=== PATIENT | male | born 1955 | race Caucasian/White ===

== ENCOUNTER 2024-06-07 17:35 | Inpatient (IN) | payer MEDICARE ==
--- NOTE | 2024-06-07 18:22 | ED ---
General Adult HPI - General Chief complaint: Recheck/Abnormal Lab/Rx Stated complaint: Abd pain Time Seen by Provider: 06/07/24 17:58 Source: patient Mode of arrival: ambulatory Limitations: no limitations - History of Present Illness Initial comments: This patient is a 68-year-old man who arrives here to have further evaluation for jaundice. The patient states that he noticed changes to his urine between a week and 2 ago. He noticed that his urine was darkening. The patient states that he started having more frequent softer bowel movements he was describing his diarrhea. He states that the stool has also lightened. The patient made an appointment and saw his physician today and then was sent here to have further evaluation for jaundice. The patient denies history of liver disease. The patient states that he is not a frequent drinker, he maybe drinks alcohol 5 times a year. No history of known gallbladder disease though he states he did have an episode of back pain a few weeks ago and he had read on the Internet that it may have been gallbladder related. Onset/Timin -: week(s) Severity scale (1-10): 0 Improves with: none Worsens with: none Associated Symptoms: other Treatments Prior to Arrival: none - Related Data Home Medications Medication Instructions Recorded Confirmed No Known Home Medications 06/08/24 06/08/24 Allergies Allergy/AdvReac Type Severity Reaction Status Date / Time No Known Allergies Allergy Verified 06/08/24 07:47 Review of Systems ROS Statement: Those systems with pertinent positive or pertinent negative responses have been documented in the HPI. ROS Other: All systems not noted in ROS Statement are negative. Constitutional: Denies: fever, chills, weakness Respiratory: Denies: cough, dyspnea Cardiovascular: Denies: chest pain, palpitations, edema Gastrointestinal: Reports: nausea, diarrhea, other (Light stools). Denies: abdominal pain, vomiting, constipation, hematemesis, melena, hematochezia Genitourinary: Reports: other (Dark urine). Denies: dysuria, frequency Musculoskeletal: Denies: back pain Skin: Denies: rash Neurological: Denies: headache, weakness Past Medical History Past Medical History: No Reported History History of Any Multi-Drug Resistant Organisms: None Reported Past Surgical History: No Surgical Hx Reported Past Psychological History: No Psychological Hx Reported Smoking Status: Current every day smoker, Never smoker Past Alcohol Use History: Rare Past Drug Use History: None Reported General Exam Limitations: no limitations General appearance: alert, in no apparent distress Head exam: Present: atraumatic, normocephalic Eye exam: Present: normal appearance, scleral icterus. Absent: conjunctival injection ENT exam: Present: normal oropharynx Neck exam: Present: normal inspection Respiratory exam: Present: normal lung sounds bilaterally. Absent: respiratory distress, wheezes, rales, rhonchi, stridor, accessory muscle use Cardiovascular Exam: Present: regular rate, normal rhythm, normal heart sounds. Absent: systolic murmur, diastolic murmur, rubs, gallop GI/Abdominal exam: Present: soft, organomegaly. Absent: distended, tenderness, guarding, rebound, rigid, mass, pulsatile mass, hernia Extremities exam: Present: normal inspection, normal capillary refill. Absent: pedal edema, calf tenderness Back exam: Present: normal inspection. Absent: CVA tenderness (R), CVA tenderness (L) Neurological exam: Present: alert Skin exam: Present: warm, dry, intact, other (Jaundice). Absent: rash Course Vital Signs 06/07/24 06/07/24 06/07/24 17:37 22:00 23:13 Temperature 97.7 F 98.1 F Pulse Rate 82 74 Pulse Rate [ 61 Results Engineer ] Respiratory 18 18 16 Rate Blood Pressure 104/60 114/67 Blood Pressure 112/73 [Right Arm] O2 Sat by Pulse 98 97 100 Oximetry 06/08/24 06/08/24 02:14 05:44 Temperature Pulse Rate Pulse Rate [ 65 69 Results Engineer ] Respiratory 16 16 Rate Blood Pressure Blood Pressure 114/76 110/72 [Right Arm] O2 Sat by Pulse 100 99 Oximetry Medical Decision Making - Medical Decision Making The patient had ultrasound of the abdomen which I interpreted as not showing definite biliary obstruction. There is hepatomegaly Was pt. sent in by a medical professional or institution (, PA, OLIVING MACHINE OPERATOR, urgent care, hospital, or alf...) When possible be specific @ -[Yes the patient was sent to emergency department by his physician for further evaluation related to jaundice Did you speak to anyone other than the patient for history (EMS, parent, family, police, friend...)? What history was obtained from this source @ -[No] Did you review nursing and triage notes (agree or disagree)? Why? @ -[I reviewed and agree with nursing and triage notes] Were old charts reviewed (outside hosp., previous admission, EMS record, old EKG, old radiological studies, urgent care reports/EKG's, alf records)? Report findings @ -[No old charts were reviewed] Differential Diagnosis (chest pain, altered mental status, abdominal pain women, abdominal pain men, vaginal bleeding, weakness, fever, dyspnea, syncope, headache, dizziness, GI bleed, back pain, seizure, CVA, palpatations, mental health, musculoskeletal)? @ -[Differential Abdominal Pain Men: Appendicitis, cholecystitis, diverticulosis, ischemic bowel, pancreatitis, hepatitis, UTI, gastroenteritis, AAA, incarcerated hernia, bowel obstruction, constipation, inflammatory bowel, hepatitis, peptic ulcer disease, splenic infarction, perforated viscus, testicular torsion, this is not meant to be an all-inclusive list EKG interpreted by me (3pts min.). @ -[As above] X-rays interpreted by me (1pt min.). @ -[None done] CT interpreted by me (1pt min.). @ -[None done] U/S interpreted by me (1pt. min.). @ -[I interpreted as above What testing was considered but not performed or refused? (CT, X-rays, U/S, labs)? Why? @ -[None] What meds were considered but not given or refused? Why? @ -[None] Did you discuss the management of the patient with other professionals (professionals i.e. , PA, OLIVING MACHINE OPERATOR, lab, RT, psych nurse, social worker school, drier operator helper, teacher, chairman president and chief executive officer, disability case manager)? Give summary @ -[No] Was smoking cessation discussed for >3mins.? @ -[No] Was critical care preformed (if so, how long)? @ -[No] Were there social determinants of health that impacted care today? How? (Homelessness, low income, unemployed, alcoholism, drug addiction, transportation, low edu. Level, literacy, decrease access to med. care, senior living, rehab)? @ -[No] Was there de-escalation of care discussed even if they declined (Discuss DNR or withdrawal of care, Hospice)? DNR status @ -[No] What co-morbidities impacted this encounter? (DM, HTN, Smoking, COPD, CAD, Cancer, CVA, ARF, Chemo, Hep., AIDS, mental health diagnosis, sleep apnea, morbid obesity)? @ -[None] Was patient admitted / discharged? Hospital course, mention meds given and route, prescriptions, significant lab abnormalities, going to OR and other pertinent info. @ -[Patient is 68-year-old man presenting with jaundice and markedly elevated bilirubin level. The patient did have initial ultrasound here and MRI/MRI CP was recommended to further define the etiology. Discussed with the patient and will admit to expedite this workup. Undiagnosed new problem with uncertain prognosis? @ -[No] Drug Therapy requiring intensive monitoring for toxicity (Heparin, Nitro, Insulin, Cardizem)? @ -[No] Were any procedures done? @ -[No] Diagnosis/symptom? @ -[Acute jaundice Hepatomegaly Acute, or Chronic, or Acute on Chronic? @ -[Acute Uncomplicated (without systemic symptoms) or Complicated (systemic symptoms)? @ -[Uncomplicated Side effects of treatment? @ -[No] Exacerbation, Progression, or Severe Exacerbation? @ -[No] Poses a threat to life or bodily function? How? (Chest pain, [place], [place], pneumonia, PE, COPD, DKA, ARF, appy, cholecystitis, CVA, Diverticulitis, Homicidal, Suicidal, threat to staff... and all critical care pts) @ -[Requires further evaluation - Lab Data Result diagrams: 06/07/24 18:36 06/07/24 18:36 Lab Results 06/07/24 06/07/24 06/07/24 Range/Units 18:36 18:36 18:36 WBC 6.7 (3.8-10.6) k/uL RBC 5.19 (4.30-5.90) m/uL Hgb 14.9 (13.0-17.5) gm/dL Hct 46.1 (39.0-53.0) % MCV 88.9 (80.0-100.0) fL MCH 28.8 (25.0-35.0) pg MCHC 32.4 (31.0-37.0) g/dL RDW 16.0 H (11.5-15.5) % Plt Count 182 (150-450) k/uL MPV 12.3 Neutrophils % 59 % Lymphocytes % 32 % Monocytes % 5 % Eosinophils % 2 % Basophils % 1 % Neutrophils # 3.9 (1.3-7.7) k/uL Lymphocytes # 2.1 (1.0-4.8) k/uL Monocytes # 0.3 (0-1.0) k/uL Eosinophils # 0.1 (0-0.7) k/uL Basophils # 0.0 (0-0.2) k/uL Manual Slide Review Performed Anisocytosis Slight PT 13.2 H (10.0-12.5) sec INR 1.3 H (<1.2) APTT 29.1 (22.0-30.0) sec Sodium 134 L (137-145) mmol/L Potassium 3.9 (3.5-5.1) mmol/L Chloride 107 (98-107) mmol/L Carbon Dioxide 15 L (22-30) mmol/L Anion Gap 12 mmol/L BUN 19 (9-20) mg/dL Creatinine 1.46 H (0.66-1.25) mg/dL Est GFR (CKD-EPI)AfAm 57 (>60 ml/min/1.73 sqM) Est GFR (CKD-EPI)NonAf 49 (>60 ml/min/1.73 sqM) Glucose 113 H (74-99) mg/dL Calcium 10.0 (8.4-10.2) mg/dL Total Bilirubin 24.0 H* (0.2-1.3) mg/dL AST 150 H (17-59) U/L ALT 282 H (4-49) U/L Alkaline Phosphatase 360 H (38-126) U/L Ammonia (<30) umol/L Total Protein 7.3 (6.3-8.2) g/dL Albumin 4.1 (3.5-5.0) g/dL Urine Color Urine Appearance (Clear) Urine pH (5.0-8.0) Ur Specific [place] (1.001-1.035) Urine Protein (Negative) Urine Glucose (UA) (Negative) Urine Ketones (Negative) Urine Blood (Negative) Urine Nitrite (Negative) Urine Bilirubin (Negative) Urine Urobilinogen (<2.0) mg/dL Ur Leukocyte Esterase (Negative) Urine RBC (0-5) /hpf Urine WBC (0-5) /hpf Ur Squamous Epith Cells (0-4) /hpf Urine Mucus (None) /hpf Hepatitis A IgM Ab (Nonreactive) Hep Bs Antigen (Nonreactive) Hep B Core IgM Ab (Nonreactive) Hep C IgG Ab (Nonreactive) 06/07/24 06/07/24 06/07/24 Range/Units 18:36 18:40 20:28 WBC (3.8-10.6) k/uL RBC (4.30-5.90) m/uL Hgb (13.0-17.5) gm/dL Hct (39.0-53.0) % MCV (80.0-100.0) fL MCH (25.0-35.0) pg MCHC (31.0-37.0) g/dL RDW (11.5-15.5) % Plt Count (150-450) k/uL MPV Neutrophils % % Lymphocytes % % Monocytes % % Eosinophils % % Basophils % % Neutrophils # (1.3-7.7) k/uL Lymphocytes # (1.0-4.8) k/uL Monocytes # (0-1.0) k/uL Eosinophils # (0-0.7) k/uL Basophils # (0-0.2) k/uL Manual Slide Review Anisocytosis PT (10.0-12.5) sec INR (<1.2) APTT (22.0-30.0) sec Sodium (137-145) mmol/L Potassium (3.5-5.1) mmol/L Chloride (98-107) mmol/L Carbon Dioxide (22-30) mmol/L Anion Gap mmol/L BUN (9-20) mg/dL Creatinine (0.66-1.25) mg/dL Est GFR (CKD-EPI)AfAm (>60 ml/min/1.73 sqM) Est GFR (CKD-EPI)NonAf (>60 ml/min/1.73 sqM) Glucose (74-99) mg/dL Calcium (8.4-10.2) mg/dL Total Bilirubin (0.2-1.3) mg/dL AST (17-59) U/L ALT (4-49) U/L Alkaline Phosphatase (38-126) U/L Ammonia <9 (<30) umol/L Total Protein (6.3-8.2) g/dL Albumin (3.5-5.0) g/dL Urine Color Dark Brown Urine Appearance Cloudy (Clear) Urine pH 5.5 (5.0-8.0) Ur Specific [place] 1.025 (1.001-1.035) Urine Protein Trace H (Negative) Urine Glucose (UA) Negative (Negative) Urine Ketones Negative (Negative) Urine Blood Small H (Negative) Urine Nitrite Negative (Negative) Urine Bilirubin 4+ H (Negative) Urine Urobilinogen <2.0 (<2.0) mg/dL Ur Leukocyte Esterase Negative (Negative) Urine RBC 1 (0-5) /hpf Urine WBC 9 H (0-5) /hpf Ur Squamous Epith Cells 1 (0-4) /hpf Urine Mucus Few H (None) /hpf Hepatitis A IgM Ab Nonreactive (Nonreactive) Hep Bs Antigen Nonreactive (Nonreactive) Hep B Core IgM Ab Nonreactive (Nonreactive) Hep C IgG Ab Nonreactive (Nonreactive) Disposition Clinical Impression: Jaundice Disposition: ADMITTED IP TO THIS HOSP Condition: Fair Is patient prescribed a controlled substance at d/c from ED?: No
[2024-06-07 19:06] LABS: Anisocytosis Slight; Basophils % (A) 1 %; Eosinophils # (A) 0.1 k/uL (0-0.7); Eosinophils % (A) 2 %; HCT 46.1 % (39.0-53.0); HGB 14.9 gm/dL (13.0-17.5); Lymphocytes # (A) 2.1 k/uL (1.0-4.8); Lymphocytes % (A) 32 %; MCH 28.8 pg (25.0-35.0); MCHC 32.4 g/dL (31.0-37.0); MCV 88.9 fL (80.0-100.0); Mean Platelet Volume 12.3; Monocytes # (A) 0.3 k/uL (0-1.0); Monocytes % (A) 5 %; Neutrophils # (A) 3.9 k/uL (1.3-7.7); Neutrophils % (A) 59 %; Platelet Count 182 k/uL (150-450); RBC 5.19 m/uL (4.30-5.90); WBC 6.7 k/uL (3.8-10.6)
[2024-06-07 19:19] LABS: ALT 282 U/L (4-49); AST 150 U/L (17-59); African American GFR (CKD) 57 (>60 ml/min/1.73 sqM); Albumin 4.1 g/dL (3.5-5.0); Alkaline Phosphatase 360 U/L (38-126); Anion Gap 12 mmol/L; Blood Urea Nitrogen 19 mg/dL (9-20); Carbon Dioxide 15 mmol/L (22-30); Chloride 107 mmol/L (98-107); Glucose 113 mg/dL (74-99); Non-African American GFR(CKD) 49 (>60 ml/min/1.73 sqM); Potassium 3.9 mmol/L (3.5-5.1); Sodium 134 mmol/L (137-145)
[2024-06-07 19:31] LABS: Appearance,Urine Cloudy (Clear); Bilirubin,Urine 4+ (Negative); Blood,Urine Small (Negative); Color,Urine Dark Brown; Glucose,Urine (UA) Negative (Negative); Ketones,Urine Negative (Negative); Leukocyte Esterase,Urine Negative (Negative); Mucus,Urine Few /hpf; Nitrite,Urine Negative (Negative); PH, Urine 5.5 (5.0-8.0); Protein,Urine Trace (Negative); RBC,Urine 1 /hpf (0-5); Specific Gravity,Urine 1.025 (1.001-1.035); Squamous Epithelial Cell,Urine 1 /hpf (0-4); Urobilinogen,Urine <2.0 mg/dL (<2.0); WBC,Urine 9 /hpf (0-5)
--- NOTE | 2024-06-07 19:31 | US ---
EXAMINATION TYPE: US abdomen limited DATE OF EXAM: 06/07/2024 COMPARISON: NONE CLINICAL INDICATION: Male, 68 years old with history of attention RUQ/Jaundice; Patient states jaundi ce, diarrhea, and weight loss for about 2 weeks TECHNIQUE: Multiple sonographic images of the right upper quadrant are obtained. FINDINGS: EXAM MEASUREMENTS: Liver Length: 18.4 cm Gallbladder Wall: 0.3 cm CBD: 1.8 cm Right Kidney: 10.7 x 4.4 x 4.3 cm AUDIO VISUAL PROJECT MANAGER NOTES:Limited due to overlying bowel gas Pancreas: Unable to visualize due to overlying bowel gas Liver: Hepatomegaly. Dilated ducts/ vessels. Heterogeneous echotexture. There is a 2.2 x 1.7 x 1.5cm hyperechoic area seen in the posterior right lobe of the liver. Gallbladder: Echogenic foci with posterior shadowing seen. There also appears to be layering echogen ic layering material. Evidence for sonographic House's sign: No CBD: Dilated Right Kidney: There is a 2.2 x 2.3 x 2.6cm cystic area seen within the lateral/ inferior pole. IMPRESSION: 1. Dilated ducts are seen throughout the liver. Etiology uncertain. Further evaluation with MRCP MRI recommended with IV contrast. 2. Hyperechoic lesion in the liver is indeterminate but statistically likely to represent hemangioma in the absence of history of malignancy. 3. Cholelithiasis. [facility], , 06/07/2024 7:29 PM
[2024-06-07 19:34] LABS: Total Protein 7.3 g/dL (6.3-8.2)
[2024-06-07 19:48] LABS: INR 1.3 (<1.2); Partial Thromboplastin Time 29.1 sec (22.0-30.0); Prothrombin Time 13.2 sec (10.0-12.5)
[2024-06-07] MEDS ORDERED: MAG HYDROX/AL HYDROX/SIMETH 30 ML CUP PO PRN (21:41)
[2024-06-07] MEDS ORDERED: NALOXONE 0.4 MG/ML 1 ML VIAL IV PRN (21:41)
[2024-06-07] MEDS: SODIUM CHLORIDE 0.9% 1,000 ML IV SCH (21:55)
[2024-06-08 02:46] LABS: Hepatitis A Antibody IgM Nonreactive (Nonreactive); Hepatitis B Core IgM Nonreactive (Nonreactive); Hepatitis B Surface Antigen Nonreactive (Nonreactive); Hepatitis C IgG Antibody Nonreactive (Nonreactive)
[2024-06-08] MEDS: FAMOTIDINE 20 MG TAB PO SCH (08:44)
[2024-06-08 08:45] LABS: ALT 248 U/L (4-49); AST 129 U/L (17-59); Albumin 3.6 g/dL (3.5-5.0); Albumin/Globulin Ratio 1.2; Alkaline Phosphatase 322 U/L (38-126); Globulin 2.9 g/dL; Total Protein 6.5 g/dL (6.3-8.2)
[2024-06-08 08:49] LABS: Total Bilirubin 21.8 mg/dL (0.2-1.3)
[2024-06-08 08:58] LABS: INR 1.4 (<1.2); Prothrombin Time 14.1 sec (10.0-12.5)
[2024-06-08 10:55] LABS: African American GFR (CKD) 64 (>60 ml/min/1.73 sqM); Anion Gap 11 mmol/L; Blood Urea Nitrogen 19 mg/dL (9-20); Calcium 9.7 mg/dL (8.4-10.2); Carbon Dioxide 16 mmol/L (22-30); Chloride 111 mmol/L (98-107); Glucose 116 mg/dL (74-99); Non-African American GFR(CKD) 55 (>60 ml/min/1.73 sqM); Potassium 3.8 mmol/L (3.5-5.1); Sodium 138 mmol/L (137-145)
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
[2024-06-08] MEDS: PHYTONADIONE 5 MG in SODIUM CHLORIDE 0.9% 50 ML IVPB SCH (11:57)
--- NOTE | 2024-06-08 13:11 | XR ---
EXAMINATION TYPE: XR chest 1V portable DATE OF EXAM: 06/08/2024 12:58 PM CLINICAL INDICATION: Male, 68 years old with history of CHF; COMPARISON: Chest radiographs from 06/08/2024 TECHNIQUE: XR chest 1V portable Frontal view of the chest. FINDINGS: Lungs/Pleura: There is no evidence of pleural effusion, focal consolidation, or pneumothorax. Pulmonary vascularity: Unremarkable. Heart/mediastinum: Cardiomediastinal silhouette is unremarkable. Musculoskeletal: No acute osseous pathology. IMPRESSION: No acute cardiopulmonary disease/process. [facility], , 06/08/2024 1:09 PM
[2024-06-08] MEDS: IOPAMIDOL CONTRAST (ORAL USE) VIAL PO PRN (13:48)
[2024-06-08] MEDS: PANTOPRAZOLE 40 MG/10 ML VIAL IVP SCH (14:15)
--- NOTE | 2024-06-08 16:04 | CT ---
EXAMINATION TYPE: CT abdomen pelvis wo con DATE OF EXAM: 06/08/2024 COMPARISON: None HISTORY: 68-year-old male abdominal pain, jaundice/dark urine CT DLP: 1007 mGycm. Automated exposure control for dose reduction was used. TECHNIQUE: Contiguous axial scanning of the abdomen and pelvis without IV contrast. Coronal and sagit kishan reconstructions performed. FINDINGS: Heart normal size without pericardial effusion. Strandy atelectasis posterior lung bases without pleu ral effusion. No pleural effusion. 7 mm posteromedial right basilar pulmonary nodule. 8 mm lateral left basilar pulmonary nodule. Small hiatal hernia. There is severe hepatic biliary ductal dilatation. The main bile duct is dilated up to 2.3 cm. There seems to be cut off of the bile duct at the level of the pancreatic head, coronal image 48. Possible underlying pancreatic head mass, coronal image 45 and axial image 30 possibly measuring up to 2.4 cm in size. Punctate pancreatic calcifications suggesting background chronic pancreatitis. Gallbladder hydropic measuring 5.2 cm wide with a noncalcified gallstone measuring 3.2 cm. Adrenal glands, spleen within normal limits. Bilateral renal cortical cysts measuring up to 4.1 cm on the left and 2.2 cm on the right. Tiny hyper dense cortical lesion 8 mm posterior upper pole left kidney probably a tiny hemorrhagic or proteinace ous cyst. No dilated small bowel, free fluid, or free air. No mesenteric or retroperitoneal lymphadenopathy. Oral contrast progressed to the cecum. Possible mural thickening at the lower ascending colon, refer to coronal image 56 and axial image 50. This appears may be due to nondistention. Direct visualizatio n to exclude underlying neoplasm. There is a small Kaur hernia involving the distal third transver se colon at the left upper quadrant, axial image 30. No obstructive changes. Scattered mild stool. Pr oximal to mid sigmoid diverticulosis. No pericolonic inflammatory change. Mild circumference of bladder wall thickening may be due to incomplete distention. Prostate gland emil sures 5.0 cm wide. No abnormal fluid collection in the pelvis or pelvic lymphadenopathy. A couple pel kale phlebolith are noted. Bones: Facet arthropathy mid to lower lumbar spine. Moderate degenerative disc disease mid to lower l umbar spine. [id number] degenerative change of both hips. IMPRESSION: 1. Severe intrahepatic and extrahepatic biliary ductal dilatation. The bile duct is dilated to 2.3 c m. There seems to be cut off at the level of the pancreatic head. Underlying pancreatic head mass is not excluded and may measure up to 2.4 cm. Correlate with tumor markers and pancreas MRI and/or EUS. Background chronic pancreatitis. 2. A couple pulmonary nodules at the lung bases are nonspecific measuring 7 mm and 8 mm. These warra nt follow-up to exclude metastatic disease. 3. Secondary gallbladder hydrops but without any surrounding inflammation. Noncalcified gallstone me asuring 3.2 cm. 4. Possible mural thickening at the lower ascending colon. This may be due to nondistention. Mucosal lesion/neoplasm not excluded at this time. Direct visualization recommended if routine screening col onoscopy has not been performed. 5. Incidental small left upper quadrant Kaur hernia involving the distal third transverse colon. No obstructive changes. 6. Sigmoid diverticulosis. Prostatomegaly at 5.0 cm wide. [facility], , 06/08/2024 4:01 PM
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
[2024-06-09 08:50] LABS: Basophils # (A) 0.03 X 10*3/uL (0.00-0.10); Basophils % (A) 0.6 %; Eosinophils # (A) 0.14 X 10*3/uL (0.04-0.35); Eosinophils % (A) 2.6 %; HCT 35.7 % (39.6-50.0); HGB 12.5 g/dL (13.0-17.0); Lymphocytes # (A) 1.24 X 10*3/uL (0.90-5.00); Lymphocytes % (A) 22.8 %; MCH 28.5 pg (27.0-32.0); MCV 81.3 FL (80.0-97.0); Monocytes % (A) 9.2 %; NRBC Per 100 WBC 0 X 10*3/uL (0.00-0.01); Neutrophils % (A) 64.1 %; Platelet Count 143 X 10*3/uL (140-440); RBC 4.39 X 10*6/uL (4.40-5.60); RDW 18.3 % (11.5-14.5); WBC 5.45 X 10*3/uL (4.50-10.00)
[2024-06-09 09:47] LABS: ALT 201 U/L (10-49); AST 96 U/L (14-35); Albumin 3.2 g/dL (3.8-4.9); Albumin/Globulin Ratio 2.13 Ratio (1.60-3.17); Alkaline Phosphatase 309 U/L (41-126); BUN/Creat Ratio 11.79 Ratio (12.00-20.00); Blood Urea Nitrogen 16.5 mg/dL (9.0-27.0); Calcium 8.7 mg/dL (8.7-10.3); Carbon Dioxide 18.9 mmol/L (21.6-31.8); Chloride 107 mmol/L (96-109); Globulin 1.5 g/dL (1.6-3.3); Glucose 103 mg/dL (70-110); Potassium 3.8 mmol/L (3.5-5.5); Sodium 136 mmol/L (135-145); Total Bilirubin 21.6 mg/dL (0.3-1.2); Total Protein 4.7 g/dL (6.2-8.2)
--- NOTE | 2024-06-09 11:16 | P.PN ---
Subjective Progress Note Date: 06/09/24 Principal diagnosis: Obstructive jaundice This a pleasant 68-year-old male with no reported past medical history and no home meds presented to the emergency department as recommended by his PCP for workup for jaundice. He states he started noticing dark urine about 2 weeks ago and then about a week ago noticing his skin turning yellow. He also reports having diarrhea for last 1 to 2 weeks which she reports as white and loose. He denies any abdominal pain nausea or vomiting. Does state he has had about 10 pound weight loss in last 2 weeks duration. Denies any history of previous heavy alcohol use or abuse, no alcohol use currently, non-smoker, no previous history of liver disease denies any new medications and no family history of liver or pancreatic cancer that he is aware of. Patient was severely jaundice on admission with a total bilirubin of 24 with elevated LFTs. Gastroenterology was consulted for jaundice. Patient had abdominal ultrasound with multiple abnormal findings. He currently has no complaints at this time. Denies any nausea or vomiting or abdominal pain. He does report about 2 months ago having a pain under his right rib cage that radiated to his back however did not last long. No further pain since then. 06/09/2024 Patient is seen and examined today as a follow-up. No acute changes through the night. He did undergo CT of the abdomen pelvis without contrast with findings of severe intrahepatic and extrahepatic biliary ductal dilation. Bile duct dilated to 0.3 cm with a cutoff at the level of the pancreatic head. Underlying pancreatic head mass is not excluded and may measure up to 2.4 cm. Correlate with tumor markers and pancreas MRI and/or EUS. Background chronic pancreatitis. Couple pulmonary nodules at the lung bases are nonspecific measuring 7 mm and 8 mm these warrant follow-up to exclude metastatic disease. Secondary gallbladder hydrops but without any surrounding inflammation. Noncalcified gallstone measuring 3.2 cm. Possible mural thickening at the lower ascending colon. This may be due to nondistention. Mucosal lesion/neoplasm not excluded at this time. Direct visualization recommended if routine screening colonoscopy has not been performed. Incidental small left upper quadrant Kaur hernia involving the distal third transverse colon. No obstructive changes. Sigmoid diverticulosis prostamegaly at 5.0 cm wide. CA 19-9 elevated at 144. He denies any abdominal pain at this time, no nausea or vomiting. Repeat total bilirubin 21.6 AST 96 ALT 201 alk phos 309 Objective - Vital Signs Vital signs: Vital Signs Temp 98.1 F 06/09/24 03:09 Pulse 65 06/09/24 03:09 Resp 16 06/09/24 03:09 BP 98/61 06/09/24 03:09 Pulse Ox 99 06/09/24 03:09 FiO2 Intake & Output 06/08/24 06/09/24 06/09/24 18:59 06:59 18:59 Intake Total 236 Balance 236 Intake: Oral 236 Other: Voiding Method Toilet Toilet # Voids 2 - Exam General appearance: The patient is alert, oriented, appears in no acute distress. HET: Head is normocephalic and atraumatic. Conjunctiva pink. Sclera deeply icteric. Neck: Supple without lymphadenopathy. Abdomen: Soft, nontender, nondistended with bowel sounds. No guarding or rigidity. Extremities: Normal skin color and turgor. No pedal edema Skin: No rashes, jaundice. Neurological: No focal deficits. Alert and oriented. - Labs CBC & Chem 7: 06/09/24 03:01 06/09/24 03:01 Labs: Abnormal Lab Results - Last 24 Hours (Table) 06/08/24 06/08/24 06/08/24 Range/Units 07:52 07:52 07:52 PT 14.1 H (10.0-12.5) sec INR 1.4 H (<1.2) Chloride 111 H (98-107) mmol/L Carbon Dioxide 16 L (22-30) mmol/L Creatinine 1.34 H (0.66-1.25) mg/dL Glucose 116 H (74-99) mg/dL Total Bilirubin 21.8 H* (0.2-1.3) mg/dL Conjugated Bilirubin 15.0 H (0.0-0.3) mg/dL Unconjugated Bilirubin 2.0 H (0.0-1.1) mg/dL AST 129 H (17-59) U/L ALT 248 H (4-49) U/L Alkaline Phosphatase 322 H (38-126) U/L CA 19-9 Antigen 144.0 H (0.0-34.9) U/mL Assessment and Plan (1) Hyperbilirubinemia Narrative/Plan: 68-year-old male with no significant past medical history presents with jaundice with onset 2 weeks ago associated with pale diarrhea and a 10 pound weight loss in the last 2 weeks duration. No history of alcoholism, liver disease and no abdominal pain. Elevated bilirubin and LFTs, unconjugated bilirubin 15.0 conjugated 2.0. Hepatomegaly with dilated ducts and dilated CBD as well as heterogeneous liver with hyperechoic area. Unclear etiology however has cholestatic pattern need to consider obstructive jaundice. CT abdomen pelvis performed with findings of pancreatic head mass likely causing obstructive jaundice malignancy With elevated CA 19 9 suspicious for possible malignancy. Recommend transfer to tertiary center for ERCP with EUS and biopsy. This was discussed with the patient who was somewhat hesitant with the transfer however states would like to stay as close as possible. Recommendations for transfer discussed with primary medical team to initiate transfer. Current Visit: Yes Status: Acute Code(s): E80.6 - OTHER DISORDERS OF BILIRUBIN METABOLISM SNOMED Code(s): 33768219 (2) Elevated LFTs Narrative/Plan: AFP tumor marker normal Current Visit: Yes Status: Acute Code(s): R79.89 - OTHER SPECIFIED ABNORMAL FINDINGS OF BLOOD CHEMISTRY SNOMED Code(s): 770877983 (3) Abnormal US (ultrasound) of abdomen Current Visit: Yes Status: Acute Code(s): R93.5 - ABN FINDINGS ON DX IMAGING OF ABD REGIONS, INC RETROPERITON SNOMED Code(s): 09306640051725217 (4) Cholelithiases Current Visit: Yes Status: Acute Code(s): K80.20 - CALCULUS OF GALLBLADDER W/O CHOLECYSTITIS W/O OBSTRUCTION SNOMED Code(s): 035275566 (5) Common bile duct dilation Current Visit: Yes Status: Acute Code(s): K83.8 - OTHER SPECIFIED DISEASES OF BILIARY TRACT SNOMED Code(s): 485366844 (6) Hepatomegaly Current Visit: Yes Status: Acute Code(s): R16.0 - HEPATOMEGALY, NOT ELSEWHERE CLASSIFIED SNOMED Code(s): 69200026 (7) Jaundice Current Visit: Yes Status: Acute Code(s): R17 - UNSPECIFIED JAUNDICE SNOMED Code(s): 44261549 (8) Diarrhea Current Visit: Yes Status: Acute Code(s): R19.7 - DIARRHEA, UNSPECIFIED SNOMED Code(s): 18568163 Plan: 1. Continue symptomatic and supportive care 2. Will cancel MRI 3. Patient may have regular diet 4. Avoid hepatotoxic medications 5. AFP, CA 19-9 tumor markers ordered 6. Recommend transfer to tertiary center for ERCP with EUS for biopsy and further recommendations on treatment. This was discussed with the patient. Also discussed with primary medical team to initiate transfer. Thank you for this consultation, we will continue to follow. Dr. Lonnie Santos I agree with the dictator's note, documented as a scribe by Genevieve Lane.
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
[2024-06-10 10:43] LABS: ALT 196 U/L (4-49); AST 112 U/L (17-59); African American GFR (CKD) 82 (>60 ml/min/1.73 sqM); Albumin 3.4 g/dL (3.5-5.0); Albumin/Globulin Ratio 1.1; Anion Gap 10 mmol/L; Blood Urea Nitrogen 17 mg/dL (9-20); Calcium 9.4 mg/dL (8.4-10.2); Carbon Dioxide 18 mmol/L (22-30); Chloride 110 mmol/L (98-107); Glucose 113 mg/dL (74-99); Non-African American GFR(CKD) 71 (>60 ml/min/1.73 sqM); Sodium 138 mmol/L (137-145)
[2024-06-10 11:00] LABS: Alkaline Phosphatase 286 U/L (38-126); Total Protein 6.4 g/dL (6.3-8.2)
[2024-06-10 11:01] LABS: Total Bilirubin 28.5 mg/dL (0.2-1.3)
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
--- NOTE | 2024-06-10 13:57 | P.PN ---
Subjective Progress Note Date: 06/10/24 Principal diagnosis: Obstructive jaundice This a pleasant 68-year-old male with no reported past medical history and no home meds presented to the emergency department as recommended by his PCP for workup for jaundice. He states he started noticing dark urine about 2 weeks ago and then about a week ago noticing his skin turning yellow. He also reports having diarrhea for last 1 to 2 weeks which she reports as white and loose. He denies any abdominal pain nausea or vomiting. Does state he has had about 10 pound weight loss in last 2 weeks duration. Denies any history of previous heavy alcohol use or abuse, no alcohol use currently, non-smoker, no previous history of liver disease denies any new medications and no family history of liver or pancreatic cancer that he is aware of. Patient was severely jaundice on admission with a total bilirubin of 24 with elevated LFTs. Gastroenterology was consulted for jaundice. Patient had abdominal ultrasound with multiple abnormal findings. He currently has no complaints at this time. Denies any nausea or vomiting or abdominal pain. He does report about 2 months ago having a pain under his right rib cage that radiated to his back however did not last long. No further pain since then. 06/09/2024 Patient is seen and examined today as a follow-up. No acute changes through the night. He did undergo CT of the abdomen pelvis without contrast with findings of severe intrahepatic and extrahepatic biliary ductal dilation. Bile duct dilated to 0.3 cm with a cutoff at the level of the pancreatic head. Underlying pancreatic head mass is not excluded and may measure up to 2.4 cm. Correlate with tumor markers and pancreas MRI and/or EUS. Background chronic pancreatitis. Couple pulmonary nodules at the lung bases are nonspecific measuring 7 mm and 8 mm these warrant follow-up to exclude metastatic disease. Secondary gallbladder hydrops but without any surrounding inflammation. Noncalcified gallstone measuring 3.2 cm. Possible mural thickening at the lower ascending colon. This may be due to nondistention. Mucosal lesion/neoplasm not excluded at this time. Direct visualization recommended if routine screening colonoscopy has not been performed. Incidental small left upper quadrant Kaur hernia involving the distal third transverse colon. No obstructive changes. Sigmoid diverticulosis prostamegaly at 5.0 cm wide. CA 19-9 elevated at 144. He denies any abdominal pain at this time, no nausea or vomiting. Repeat total bilirubin 21.6 AST 96 ALT 201 alk phos 309 06/10/2024 Patient seen and examined today as a follow-up. He is without any complaints of abdominal pain, nausea or vomiting. He states that he may get a little discomfort after eating but it is not bad. He remains extremely jaundice. He has been accepted to [facility] and is awaiting a bed for higher level of care for EUS. Objective - Vital Signs Vital signs: Vital Signs Temp 98.4 F 06/10/24 07:00 Pulse 66 06/10/24 07:00 Resp 16 06/10/24 07:00 BP 114/72 06/10/24 07:00 Pulse Ox 100 06/10/24 07:00 FiO2 Intake & Output 06/09/24 06/10/24 06/10/24 18:59 06:59 18:59 Intake Total 236 1220 Balance 236 1220 Intake: Oral 236 1220 Other: Voiding Method Toilet Toilet Toilet # Voids 1 2 - Exam General appearance: The patient is alert, oriented, appears in no acute distress. HET: Head is normocephalic and atraumatic. Conjunctiva pink. Sclera deeply icteric. Neck: Supple without lymphadenopathy. Abdomen: Soft, nontender, nondistended with bowel sounds. No guarding or rigidity. Extremities: Normal skin color and turgor. No pedal edema Skin: No rashes, jaundice. Neurological: No focal deficits. Alert and oriented. - Labs CBC & Chem 7: 06/09/24 03:01 06/10/24 09:18 Labs: Abnormal Lab Results - Last 24 Hours (Table) 06/09/24 06/09/24 Range/Units 03:01 03:01 RBC 4.39 L (4.40-5.60) X 10*6/uL Hgb 12.5 L (13.0-17.0) g/dL Hct 35.7 L (39.6-50.0) % RDW 18.3 H (11.5-14.5) % Carbon Dioxide 18.9 L (21.6-31.8) mmol/L Est GFR (CKD-EPI) 55 L (>=60) BUN/Creatinine Ratio 11.79 L (12.00-20.00) Ratio Total Bilirubin 21.6 A* (0.3-1.2) mg/dL AST 96 H (14-35) U/L ALT 201 H (10-49) U/L Alkaline Phosphatase 309 H (41-126) U/L Total Protein 4.7 L (6.2-8.2) g/dL Albumin 3.2 L (3.8-4.9) g/dL Globulin 1.5 L (1.6-3.3) g/dL Assessment and Plan (1) Hyperbilirubinemia Narrative/Plan: 68-year-old male with no significant past medical history presents with jaundice with onset 2 weeks ago associated with pale diarrhea and a 10 pound weight loss in the last 2 weeks duration. No history of alcoholism, liver disease and no ab dominal pain. Elevated bilirubin and LFTs, unconjugated bilirubin 15.0 conjugated 2.0. Hepatomegaly with dilated ducts and dilated CBD as well as heterogeneous liver with hyperechoic area. Unclear etiology however has cholestatic pattern need to consider obstructive jaundice. CT abdomen pelvis performed with findings of pancreatic head mass likely causing obstructive jaundice malignancy With elevated CA 19 9 suspicious for possible malignancy. Recommend transfer to tertiary center for ERCP with EUS and biopsy. This was discussed with the patient who was somewhat hesitant with the transfer however states would like to stay as close as possible. Recommendations for transfer discussed with primary medical team to initiate transfer. Current Visit: Yes Status: Acute Code(s): E80.6 - OTHER DISORDERS OF BILIRU BIN METABOLISM SNOMED Code(s): 10955315 (2) Elevated LFTs Narrative/Plan: AFP tumor marker normal Current Visit: Yes Status: Acute Code(s): R79.89 - OTHER SPECIFIED ABNORMAL FINDINGS OF BLOOD CHEMISTRY SNOMED Code(s): 268590149 (3) Abnormal US (ultrasound) of abdomen Current Visit: Yes Status: Acute Code(s): R93.5 - ABN FINDINGS ON DX IMAGING OF ABD REGIONS, INC RETROPERITON SNOMED Code(s): 77723395096730569 (4) Cholelithiases Current Visit: Yes Status: Acute Code(s): K80.20 - CALCULUS OF GALLBLADDER W/O CHOLECYSTITIS W/O OBSTRUCTION SNOMED Code(s): 798393969 (5) Common bile duct dilation Current Visit: Yes Status: Acute Code(s): K83.8 - OTHER SPECIFIED DISEASES OF BILIARY TRACT SNOMED Code(s): 072534408 (6) Hepatomegaly Current Visit: Yes Status: Acute Code(s): R16.0 - HEPATOMEGALY, NOT ELSEWHERE CLASSIFIED SNOMED Code(s): 32922890 (7) Jaundice Current Visit: Yes Status: Acute Code(s): R17 - UNSPECIFIED JAUNDICE SNOMED Code(s): 59353872 (8) Diarrhea Current Visit: Yes Status: Acute Code(s): R19.7 - DIARRHEA, UNSPECIFIED SNOMED Code(s): 72524225 (9) Mass of head of pancreas Current Visit: Yes Status: Acute Code(s): K86.89 - OTHER SPECIFIED DISEASES OF PANCREAS SNOMED Code(s): 816027797 Plan: 1. Continue symptomatic and supportive care 2. Protonix 40 mg for GI prophylaxis 3. Patient may have regular diet 4. Avoid hepatotoxic medications 5. AFP, CA 19-9 tumor markers ordered and reviewed 6. Recommend transfer to tertiary center for ERCP with EUS for biopsy and further recommendations on treatment. This was discussed with the patient. Awaiting bed for transfer to [facility] for higher level of care. Thank you for this consultation, we will continue to follow. Dr. Lonnie Santos I agree with the dictator's note, documented as a scribe by Genevieve Lane.
[2024-06-11 02:38] VITALS: RESP 16
[2024-06-11 07:42] VITALS: BP 101/59; PULSE 78; TEMP 99.3
--- NOTE | 2024-06-11 07:44 | P.PN ---
Subjective Progress Note Date: 06/11/24 Principal diagnosis: Obstructive jaundice This a pleasant 68-year-old male with no reported past medical history and no home meds presented to the emergency department as recommended by his PCP for workup for jaundice. He states he started noticing dark urine about 2 weeks ago and then about a week ago noticing his skin turning yellow. He also reports having diarrhea for last 1 to 2 weeks which she reports as white and loose. He denies any abdominal pain nausea or vomiting. Does state he has had about 10 pound weight loss in last 2 weeks duration. Denies any history of previous heavy alcohol use or abuse, no alcohol use currently, non-smoker, no previous history of liver disease denies any new medications and no family history of liver or pancreatic cancer that he is aware of. Patient was severely jaundice on admission with a total bilirubin of 24 with elevated LFTs. Gastroenterology was consulted for jaundice. Patient had abdominal ultrasound with multiple abnormal findings. He currently has no complaints at this time. Denies any nausea or vomiting or abdominal pain. He does report about 2 months ago having a pain under his right rib cage that radiated to his back however did not last long. No further pain since then. 06/09/2024 Patient is seen and examined today as a follow-up. No acute changes through the night. He did undergo CT of the abdomen pelvis without contrast with findings of severe intrahepatic and extrahepatic biliary ductal dilation. Bile duct dilated to 0.3 cm with a cutoff at the level of the pancreatic head. Underlying pancreatic head mass is not excluded and may measure up to 2.4 cm. Correlate with tumor markers and pancreas MRI and/or EUS. Background chronic pancreatitis. Couple pulmonary nodules at the lung bases are nonspecific measuring 7 mm and 8 mm these warrant follow-up to exclude metastatic disease. Secondary gallbladder hydrops but without any surrounding inflammation. Noncalcified gallstone measuring 3.2 cm. Possible mural thickening at the lower ascending colon. This may be due to nondistention. Mucosal lesion/neoplasm not excluded at this time. Direct visualization recommended if routine screening colonoscopy has not been performed. Incidental small left upper quadrant Kaur hernia involving the distal third transverse colon. No obstructive changes. Sigmoid diverticulosis prostamegaly at 5.0 cm wide. CA 19-9 elevated at 144. He denies any abdominal pain at this time, no nausea or vomiting. Repeat total bilirubin 21.6 AST 96 ALT 201 alk phos 309 06/10/2024 Patient seen and examined today as a follow-up. He is without any complaints of abdominal pain, nausea or vomiting. He states that he may get a little discomfort after eating but it is not bad. He remains extremely jaundice. He has been accepted to [facility] and is awaiting a bed for higher level of care for EUS. 06/11/2024 Patient is seen and examined today as a follow-up. Continues with no abdominal pain nausea or vomiting. He is tolerating a regular diet. He has been accepted by [facility] and has a bed available. Awaiting primary care team to call report. Today's labs are currently pending. Objective - Vital Signs Vital signs: Vital Signs Temp 98.0 F 06/11/24 02:00 Pulse 63 06/11/24 02:00 Resp 16 06/11/24 02:00 BP 107/73 06/11/24 02:00 Pulse Ox 100 06/11/24 02:00 FiO2 Intake & Output 06/10/24 06/10/24 06/11/24 06:59 18:59 06:59 Intake Total 1220 954 480 Balance 1220 954 480 Intake: Intake, IV Titration 600 Amount Sodium Chloride 0.9% 1, 600 000 ml @ 75 mls/hr IV . [id number] [facility] Rx#:[id number] Oral 1220 354 480 Other: Voiding Method Toilet Toilet Toilet # Voids 2 3 - Exam General appearance: The patient is alert, oriented, appears in no acute distress. HET: Head is normocephalic and atraumatic. Conjunctiva pink. Sclera deeply icteric. Neck: Supple without lymphadenopathy. Abdomen: Soft, nontender, nondistended with bowel sounds. No guarding or rigidity. Extremities: Normal skin color and turgor. No pedal edema Skin: No rashes, jaundice. Neurological: No focal deficits. Alert and oriented. - Labs CBC & Chem 7: 06/09/24 03:01 06/10/24 09:18 Labs: Abnormal Lab Results - Last 24 Hours (Table) 06/10/24 Range/Units 09:18 Chloride 110 H (98-107) mmol/L Carbon Dioxide 18 L (22-30) mmol/L Glucose 113 H (74-99) mg/dL Total Bilirubin 28.5 H* (0.2-1.3) mg/dL AST 112 H (17-59) U/L ALT 196 H (4-49) U/L Alkaline Phosphatase 286 H (38-126) U/L Albumin 3.4 L (3.5-5.0) g/dL Assessment and Plan (1) Hyperbilirubinemia Narrative/Plan: 68-year-old male with no significant past medical history presents with jaundice with onset 2 weeks ago associated with pale diarrhea and a 10 pound weight loss in the last 2 weeks duration. No history of alcoholism, liver disease and no abdominal pain. Elevated bilirubin and LFTs, unconjugated bilirubin 15.0 conjugated 2.0. Hepatomegaly with dilated ducts and dilated CBD as well as heterogeneous liver with hyperechoic area. Unclear etiology however has cholestatic pattern need to consider obstructive jaundice. CT abdomen pelvis performed with findings of pancreatic head mass likely causing obstructive jaundice malignancy With elevated CA 19 9 suspicious for possible malignancy. Recommend transfer to tertiary center for ERCP with EUS and biopsy. This was discussed with the patient who was somewhat hesitant with the transfer however states would like to stay as close as possible. Recommendations for transfer discussed with primary medical team to initiate transfer. Current Visit: Yes Status: Acute Code(s): E80.6 - OTHER DISORDERS OF BILIRUBIN METABOLISM SNOMED Code(s): 16140893 (2) Elevated LFTs Narrative/Plan: AFP tumor marker normal Current Visit: Yes Status: Acute Code(s): R79.89 - OTHER SPECIFIED ABNORMAL FINDINGS OF BLOOD CHEMISTRY SNOMED Code(s): 481009395 (3) Abnormal US (ultrasound) of abdomen Current Visit: Yes Status: Acute Code(s): R93.5 - ABN FINDINGS ON DX IMAGING OF ABD REGIONS, INC RETROPERITON SNOMED Code(s): 39295193212894447 (4) Cholelithiases Current Visit: Yes Status: Acute Code(s): K80.20 - CALCULUS OF GALLBLADDER W/O CHOLECYSTITIS W/O OBSTRUCTION SNOMED Code(s): 524203386 (5) Common bile duct dilation Current Visit: Yes Status: Acute Code(s): K83.8 - OTHER SPECIFIED DISEASES OF BILIARY TRACT SNOMED Code(s): 561557052 (6) Hepatomegaly Current Visit: Yes Status: Acute Code(s): R16.0 - HEPATOMEGALY, NOT ELSEWHERE CLASSIFIED SNOMED Code(s): 41253633 (7) Jaundice Current Visit: Yes Status: Acute Code(s): R17 - UNSPECIFIED JAUNDICE SNOM ED Code(s): 84302937 (8) Diarrhea Current Visit: Yes Status: Acute Code(s): R19.7 - DIARRHEA, UNSPECIFIED SNOMED Code(s): 81044658 (9) Mass of head of pancreas Current Visit: Yes Status: Acute Code(s): K86.89 - OTHER SPECIFIED DISEASES OF PANCREAS SNOMED Code(s): 657755090 Plan: 1. Continue symptomatic and supportive care 2. Protonix 40 mg for GI prophylaxis 3. Patient may have regular diet 4. Avoid hepatotoxic medications 5. AFP, CA 19-9 tumor markers ordered and reviewed 6. Recommend transfer to tertiary center for ERCP with EUS for biopsy and further recommendations on treatment. This was discussed with the patient. Patient has been accepted to [facility] and has a bed, will transfer today. Thank you for this consultation, we will sign off at this time. Dr. Lonnie Santos I agree with the dictator's note, documented as a scribe by Genevieve Lane.
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
== END 2024-06-11 11:10 | disposition short-term general hospital (02) | DRG 444 ==
LOC: EC 17:35 → 6NMEDSUR 21:43 → OBSVTOIN 21:45 → 6NMEDSUR 22:47
PROVIDERS: ADMIT Hospitalist; ATTEND Hospitalist
DX: K80.21 Calculus of gallbladder without cholecystitis with obstruction (principal); N17.0 Acute kidney failure with tubular necrosis; E87.1 Hypo-osmolality and hyponatremia; K82.1 Hydrops of gallbladder; K46.0 Unspecified abdominal hernia with obstruction, without gangrene; K86.1 Other chronic pancreatitis; R16.0 Hepatomegaly, not elsewhere classified; R63.4 Abnormal weight loss; K83.8 Other specified diseases of biliary tract; F17.210 Nicotine dependence, cigarettes, uncomplicated; R91.8 Other nonspecific abnormal finding of lung field; K57.30 Diverticulosis of large intestine without perforation or abscess without bleeding; E80.6 Other disorders of bilirubin metabolism; N40.0 Benign prostatic hyperplasia without lower urinary tract symptoms; E86.0 Dehydration; Z68.26 Body mass index [BMI] 26.0-26.9, adult
CPT/HCPCS: 36415; 71045; 74176; 76705; 80048; 80053; 80074; 80076; 81001; 82105; 82140; 85025; 85610; 85730; 86301; 96365; 99285

== ENCOUNTER 2025-01-10 10:35 | Day surgery (SDC) | payer MEDICARE ==
[~2025-01-10 10:35] MED LIST: HYDROmorphone 0.5 MG/0.5 ML SYRINGE IVP PRN; LIDOCAINE 1% (10MG/ML) FOR IV START INTRADERMA PRN; MIDAZOLAM 2 MG/2 ML VIAL IV PRN; Pre Op ABX Message 1 EACH MISC MISCELLANE ONE; fentaNYL (PF) 50 MCG/ML 2 ML AMP IVP PRN
[2025-01-10] MEDS: LACTATED RINGERS 1,000 ML IV ONE (10:47)
[2025-01-10 10:52] VITALS: TEMP 97.2
[2025-01-10] MEDS: LACTATED RINGERS 1,000 ML IV SCH (11:04)
[2025-01-10] MEDS: DEXAMETHASONE SOD PHOSPHATE 4 MG/ML 1 ML VIAL IV ONE (11:04)
[2025-01-10] MEDS: ONDANSETRON 4 MG/2 ML VIAL IVP ONE (11:04)
[2025-01-10] MEDS ORDERED: MIDAZOLAM 2 MG/2 ML VIAL ONE (12:13)
[2025-01-10] MEDS ORDERED: fentaNYL (PF) 50 MCG/ML 2 ML AMP ONE (12:13)
[2025-01-10] MEDS ORDERED: PROPOFOL 10 MG/ML 20 ML VIAL IV ONE (12:13)
[2025-01-10] MEDS ORDERED: KETAMINE HCL IN 0.9 % NACL 50 MG/5 ML SYRINGE ONE (12:13)
[2025-01-10] MEDS: LIDOCAINE 1%-EPI 1:100,000 20 ML VIAL SQ ONE ×2 (12:16→12:38)
[2025-01-10] MEDS: SODIUM CHLORIDE 0.9% 1,000 ML with ceFAZolin 2,000 MG IV ONE (12:32)
--- NOTE | 2025-01-10 13:02 | FL ---
EXAMINATION TYPE: FL guided central line placemt Intraoperative/procedural fluoroscopic services were provided. CLINICAL INDICATION:Male, 69 years old with history of PORTACATH INSERTION; , [facility] FINDINGS: Interval placement of right subclavian approach Port-A-Cath with distal tip at the high SVC. No radio graphic evidence for complication. Total fluoroscopy time is 9.7 seconds. DAP: 0.395 Gycm2 Please see the operative/procedural note for further details. [facility], , 01/10/2025 1:00 PM
--- NOTE | 2025-01-10 13:04 | P.OP ---
Date of Procedure: 01/10/25 Preoperative Diagnosis: Pancreatic cancer Postoperative Diagnosis: Pancreatic cancer Procedure(s) Performed: Mediport with fluoroscopic guidance Anesthesia: MAC Surgeon: Khoa Smith Pathology: none sent Condition: stable Disposition: same day Indications for Procedure: 69-year-old male undergoing chemotherapy secondary to pancreatic cancer. He has been having difficult vascular access and secondary to this plan is for Mediport placement. Risks, benefits and alternatives including risk of pneumothorax and bleeding were discussed with the patient. All questions answered prior to attending the operating suite. Operative Findings: Appropriate flush and withdrawal from Mediport site Description of Procedure: Patient was brought to the operating suite and placed in supine position on the operating table. Sedation was provided by anesthesia and the patient underwent endotracheal intubation. Patient was then prepped and draped in regular sterile fashion. Local anesthetic was administered and the right subclavian vein was entered on first attempt. Dark, nonpulsatile blood was noted in the syringe. Guidewire was then placed and location was confirmed under fluoroscopic guidance. At this point local anesthetic was administered to create the pocket for the port. Incision was made and dissection was carried to the prepectoralis fascia. Dissection was carried to free up space for the port. At this point a small incision was made at the guidewire insertion site and a tunnel was created between this guidewire site and the pocket and catheter was placed. Dilator sheath was then placed over the guidewire under fluoroscopic guidance and catheter was then placed. Catheter was noted to be in appropriate position and was connected to the port and port was placed in the pocket. Appropriate flush and withdrawal was noted from the port site. The port was then secured to the prepectoralis fascia in 2 separate locations. Fluoroscopic guidance confirmed location with no kinks in the catheter. Heparin lock was placed. The wound was then closed in layers with 3-0 Vicryl and 4-0 Vicryl subcuticular suture. Sterile dressing was applied. The patient was then taken to postanesthesia care unit in stable condition with pending chest x-ray.
--- NOTE | 2025-01-10 13:41 | XR ---
EXAMINATION TYPE: XR chest 1V confirm line plctx DATE OF EXAM: 01/10/2025 1:26 PM COMPARISON: Chest radiographs from 06/08/2024, fluoroscopic images 01/10/2025 TECHNIQUE: XR chest 1V confirm line plcmt Portable AP radiograph of the chest. CLINICAL INDICATION:Male, 69 years old with history of Mediport placement; FINDINGS: Lungs/Pleura: There is no evidence of pleural effusion, focal consolidation, or pneumothorax. Chroni c senescent parenchymal change. Pulmonary vascularity: Unremarkable. Heart/mediastinum: Cardiomediastinal silhouette is enlarged and stable. Musculoskeletal: No acute osseous pathology. Other findings: None Lines/Tubes: Right subclavian approach Mediport catheter with distal tip terminating in the high SVC. IMPRESSION: 1. Right subclavian approach Mediport catheter with distal tip terminating in the high SVC. No pneum othorax. 2. Cardiomegaly. [facility], , 01/10/2025 1:39 PM
[2025-01-10 14:30] VITALS: BP 110/70; PULSE 82; RESP 18
== END 2025-01-10 14:25 | disposition home or self-care (01) ==
LOC: OR 10:35
PROVIDERS: ATTEND Surgery
DX: C25.0 Malignant neoplasm of head of pancreas (principal); Z45.2 Encounter for adjustment and management of vascular access device
CPT/HCPCS: 36561; 77001; C1788; J2250; J1100; J2405; J0690; J3010; J1642; J2704